=== PATIENT | female | born 1930 | race Caucasian/White ===

== ENCOUNTER 2017-09-28 11:54 | Emergency (ER) | payer MEDICARE, OTHER ==
--- NOTE | 2017-09-28 12:11 | EDM.PDOC ---
ED HPI GENERAL MEDICAL PROBLEM - General Stated Complaint: LEFT EAR Time Seen by Provider: 09/28/17 11:54 Source of Information: Reports: Patient, Family History Limitations: Reports: No Limitations - History of Present Illness INITIAL COMMENTS - FREE TEXT/NARRATIVE: 86 y.o.w.f came to the ed due to left ear pain for one week. Pt was seen in the clinic 4 days ago, no meds were given. Pt stated she thinks Something is "swimming" left ear. She is noticing when she moved her head. her hearing at her left ear is decreased as well. No F/C/N/V or any other acute medical issues. BP 179/69 pulse 58 RR 15 O2 sat 98% Temp 36.5 Onset: Today Onset Date: 09/23/17 Onset Time: 07:00 Duration: Day(s):, Getting Worse, Intermittent Location: Reports: Face Quality: Reports: Ache, Burning Severity: Moderate Improves with: Reports: Rest Worsens with: Reports: Movement Context: Reports: Other (left ear pain with movement of head) Associated Symptoms: Reports: No Other Symptoms - Related Data Allergies Allergy/AdvReac Type Severity Reaction Status Date / Time No Known Allergies Allergy Verified 09/28/17 12:19 Home Meds: Home Meds Amoxicillin/Clavulanate K [Augmentin 875 MG] 1 tab PO BID #20 tablet 09/28/17 [ Rx] ED ROS ENT - Review of Systems Review Of Systems: See Below Constitutional: Reports: No Symptoms HEENT: Reports: Ear Pain Respiratory: Reports: No Symptoms Cardiovascular: Reports: No Symptoms Endocrine: Reports: No Symptoms GI/Abdominal: Reports: No Symptoms : Reports: No Symptoms Musculoskeletal: Reports: No Symptoms Skin: Reports: No Symptoms Neurological: Reports: No Symptoms Psychiatric: Reports: No Symptoms Hematologic/Lymphatic: Reports: No Symptoms Immunologic: Reports: No Symptoms ED EXAM, ENT - Physical Exam Exam: See Below Exam Limited By: No Limitations General Appearance: Alert, WD/WN, Mild Distress Eye Exam: Bilateral Eye: EOMI, Normal Inspection, PERRL Ears: Normal External Exam, Normal Canal, TM Bulging, TM Dullness, TM Erythema Nose: Normal Inspection, Normal Mucousa Mouth/Throat: Normal Inspection, Normal Gums, Normal Lips, Dry Mucous Membrane Head: Atraumatic, Normocephalic Neck: Normal Inspection Respiratory/Chest: No Respiratory Distress, Lungs Clear, Normal Breath Sounds Cardiovascular: Normal Peripheral Pulses, Regular Rate, Rhythm, No Edema GI/Abdominal: Normal Bowel Sounds, Soft, Non-Tender, No Organomegaly, No Distention, No Abnormal Bruit, No Mass (Female) Exam: Deferred Rectal (Female) Exam: Deferred Back: Normal Inspection, Full Range of Motion Extremities: Normal Inspection, Normal Range of Motion, Non-Tender, No Pedal Edema Neurological: Alert, Oriented, CN II-XII Intact, Normal Cognition, Normal Gait, No Motor/Sensory Deficits Psychiatric: Normal Affect, Normal Mood Skin: Warm, Dry, Intact, Normal Color Lymphatic: No Adenopathy Course - Vital Signs Text/Narrative:: 86 y.o.w.f came to the ed due to left ear pain for one week. Pt was seen in the [facility] clinic 4 days ago, no meds were given. Pt stated she thinks Something is "swimming" left ear. She is noticing when she moved her head. her hearing at her left ear is decreased as well. No F/C/N/V or any other acute medical issues. BP 179/69 pulse 58 RR 15 O2 sat 98% Temp 36.5 Pt did not take her BP Meds today. PE: Bulging left TM with erythema Impression: HTN, Otitis media left ear. Tx: Augmentin prescription Plan: D/C with instructions, Pt was given the phone number from the ENT clinic Last Recorded V/S: Last Vital Signs Temp 36.7 C 09/28/17 12:38 Pulse 57 L 09/28/17 12:38 Resp 16 09/28/17 12:38 BP 168/74 H 09/28/17 12:38 Pulse Ox 99 09/28/17 12:38 Departure - Departure Time of Disposition: 12:00 Disposition: Home, Self-Care 01 Condition: Good Clinical Impression: Left middle ear infection Qualifiers: Chronicity: subacute Recurrence: not specified as recurrent - Discharge Information Prescriptions: Amoxicillin/Clavulanate K [Augmentin 875 MG] 1 tab PO BID #20 tablet Instructions: Otitis Media, Adult, [id number] Referrals: PCP,None [Primary Care Provider] - Forms: ED Department Discharge Additional Instructions: Please take Motrin and tylenol for pain, please take the Augmentin as recommended, please f/u with ENT, come back if your symptoms get worse acutely
== END 2017-09-28 12:40 | disposition home or self-care (01) ==
LOC: FB.ED 11:54
DX: H66.92 Otitis media, unspecified, left ear (principal); I10 Essential (primary) hypertension
CPT/HCPCS: 99282; 99283